=== PATIENT | female | born 1985 | race Caucasian/White ===

== ENCOUNTER 2016-06-28 21:12 | Inpatient (IN) | payer OTHER ==
[~2016-06-28] VITALS: Ht 162.6 cm; Wt 64.0 kg
[~2016-06-28 21:12] MED LIST: LIDOCAINE PF 1% 30ML(POUR BTL) INJ ONE; MINERAL OIL 30 ML UDC ONE
[2016-06-28] MEDS ORDERED: LR 500 ML IV ONE (21:48)
[2016-06-28] MEDS ORDERED: LR 1,000 ML IV ONE (21:48)
[2016-06-28] MEDS ORDERED: OXYTOCIN/NORMAL SALINE 1,000 ML IV SCH (21:48)
[2016-06-28] MEDS ORDERED: LR 1,000 ML IV SCH (21:48)
[2016-06-28] MEDS ORDERED: NALBUPHINE HCL 10 MG/ML AMP IVP PRN (22:00)
[2016-06-28] MEDS ORDERED: TERBUTALINE SULFATE 1 MG/ML VIAL SUBCUT PRN (22:00)
[2016-06-28 22:29] LABS: BASOPHILS # (AUTO) 0.2 K/uL (0.0-0.2); BASOPHILS % (AUTO) 1.9 % (0.0-2.0); EOSINOPHILS # (AUTO) 0.1 K/uL (0.0-0.4); EOSINOPHILS % (AUTO) 0.6 % (0.0-4.0); HEMATOCRIT 41.3 % (36-48); HEMOGLOBIN 13.8 g/dL (12.0-16.0); LYMPHOCYTES # (AUTO) 1.2 K/uL (1.0-5.5); LYMPHOCYTES % (AUTO) 10.9 % (20.5-51.5); MEAN CORPUSCULAR HEMOGLOBIN 31 pg (27-31); MEAN CORPUSCULAR HGB CONC 33 % (32-36); MEAN CORPUSCULAR VOLUME 94 fL (79.0-98.0); MONOCYTES # (AUTO) 0.6 K/uL (0.0-1.0); MONOCYTES % (AUTO) 5.2 % (1.7-9.3); NEUTROPHILS # (AUTO) 9.3 K/uL (1.8-7.7); NEUTROPHILS % (AUTO) 81.4 % (40.0-70.0); PLATELET COUNT (AUTO) 163 K/uL (130-430); RED BLOOD CELL COUNT(AUTO) 4.39 MIL/uL (4.2-6.2); RED CELL DISTRIBUTION WIDTH 13.5 % (9.0-15.0); WHITE BLOOD COUNT (AUTO) 11.4 K/uL (4.8-10.8)
[2016-06-29] MEDS ORDERED: fentaNYL CITRATE/PF 100 MCG/2 ML AMP ONE (02:48)
[2016-06-29] MEDS ORDERED: FENT2mCg/mL-ROPIVA0.2%/NS EPID 150 ML EP ONE (02:48)
[2016-06-29] MEDS ORDERED: LR 500 ML IV ONE (03:54)
[2016-06-29] MEDS ORDERED: fentaNYL CITRATE/PF 100 MCG/2 ML AMP EP ONE (04:00)
[2016-06-29] MEDS ORDERED: ePHEDrine sulfate 50 MG/ML VIAL IVP PRN (04:00)
[2016-06-29] MEDS ORDERED: ROPIVACAINE 40 MG/20 ML AMP EP ONE (04:00)
[2016-06-29] MEDS ORDERED: FENT2mCg/mL-ROPIVA0.2%/NS EPID 150 ML EP SCH (04:00)
[2016-06-29] MEDS ORDERED: ONDANSETRON HCL 4 MG/2 ML VIAL IVP PRN (04:30)
[2016-06-29] MEDS ORDERED: ONDANSETRON HCL 4 MG/2 ML VIAL ONE (04:39)
[2016-06-29 11:35] VITALS: BP_SYST 103
[2016-06-29] MEDS ORDERED: METHYLERGONOVINE MALEATE 0.2 MG/ML AMP ONE (15:22)
[2016-06-29] MEDS ORDERED: OXYTOCIN/NORMAL SALINE 1,000 ML IV SCH (15:56)
[2016-06-29] MEDS ORDERED: OXYTOCIN/NORMAL SALINE 1,000 ML IV ONE (15:56)
[2016-06-29] MEDS ORDERED: LANOLIN 7 GM OINT. TP PRN (16:00)
[2016-06-29] MEDS ORDERED: ANUSOL 1 EA SUPP.RECT (PREPARATION H) RC PRN (16:00)
[2016-06-29] MEDS ORDERED: RHO(D) IMMUNE GLOBULIN/MALTOSE 1500 UNITS/1.3 ML (WINHRO) IM PRN (16:00)
[2016-06-29] MEDS ORDERED: HYDROCORTISONE 0.5%, 28.35 GM TOPICAL CREAM TP PRN (16:00)
[2016-06-29] MEDS ORDERED: METHYLERGONOVINE MALEATE 0.2 MG TABLET PO PRN (16:00)
[2016-06-29] MEDS ORDERED: OXYCODONE/ACETAMINOPHEN 5-325 TABLET PO PRN ×2 (16:00)
[2016-06-29] MEDS ORDERED: GLYCERIN/WITCH HAZEL (TUCKS PADS) TP PRN (16:00)
[2016-06-29] MEDS ORDERED: ACETAMINOPHEN 325 MG TABLET PO PRN (16:00)
[2016-06-29] MEDS ORDERED: MEASLES,MUMPS&RUBELLA VACC/PF 12500 UNIT/0.5 ML VIAL SUBQ PRN (16:00)
[2016-06-29] MEDS ORDERED: DOCUSATE SODIUM 100 MG CAPSULE PO PRN (16:00)
[2016-06-29] MEDS ORDERED: DERMOPLAST SPRAY TP PRN (16:00)
[2016-06-29] MEDS: IBUPROFEN 600 MG TABLET PO SCH (18:01)
[2016-06-29] MEDS ORDERED: TEMAZEPAM 15 MG CAPSULE PO PRN (21:00)
[2016-06-30] MEDS: IBUPROFEN 600 MG TABLET PO SCH ×4 (00:12→17:39)
[2016-06-30 06:54] LABS: HEMATOCRIT 34.7 % (36-48)
[2016-06-30] MEDS: SENNOSIDES/DOCUSATE SODIUM 1 TAB TABLET(SENOKOT-S) PO PRN ×2 (12:36→17:41)
== END 2016-06-30 20:08 | disposition home or self-care (01) | DRG 775 ==
LOC: SPU 21:12
PROVIDERS: ADMIT Obstetrics & Gynecology; ATTEND Obstetrics & Gynecology
PROC: 10E0XZZ Delivery of Products of Conception, External Approach (ICD-10-PCS; principal; 2016-06-28)
PROC: 0KQM0ZZ Repair Perineum Muscle, Open Approach (ICD-10-PCS; 2016-06-28)
PROC: 3E0S3CZ (ICD-10-PCS; 2016-06-28)
PROC: 00HU33Z Insertion of Infusion Device into Spinal Canal, Percutaneous Approach (ICD-10-PCS; 2016-06-28)
DX: O70.1 Second degree perineal laceration during delivery (principal); Z37.0 Single live birth; Z3A.40 40 weeks gestation of pregnancy
CPT/HCPCS: 36415; 81002-TC; 85018-TC; 85025; 86592; 86886; 86900; 86901; J2001; J2210; J2300; J2405; J2590; J2795; J3010

== ENCOUNTER 2018-02-06 08:20 | Emergency (ER) | payer OTHER ==
[~2018-02-06] VITALS: Ht 162.6 cm; Wt 49.9 kg
[2018-02-06 08:23] VITALS: BP_SYST 114
[2018-02-06] MEDS ORDERED: KETOROLAC TROMETHAMINE 30 MG VIAL IVP ONE (08:30)
[2018-02-06 08:48] LABS: BILIRUBIN,URINE NEGATIVE (NEGATIVE); BLOOD, URINE NEGATIVE (NEGATIVE); CLARITY/URINE CLEAR (CLEAR); COLOR,URINE YELLOW (YELLOW); GLUCOSE,URINE NEGATIVE (NEGATIVE); KETONES,URINE NEGATIVE (NEGATIVE); LEUKOCYTE ESTERASE ,URINE 2+ (NEGATIVE); NITRITE, URINE NEGATIVE (NEGATIVE); PROTEIN URINE NEGATIVE (NEGATIVE); UROBILINOGEN,URINE 0.2 (0.2-1.0)
[2018-02-06 08:51] LABS: BASOPHILS # (AUTO) 0.1 K/uL (0.0-0.2); BASOPHILS % (AUTO) 1.5 % (0.0-2.0); EOSINOPHILS % (AUTO) 0.6 % (0.0-4.0); HEMATOCRIT 42.5 % (36-48); HEMOGLOBIN 13.7 g/dL (12.0-16.0); LYMPHOCYTES # (AUTO) 1.4 K/uL (1.0-5.5); LYMPHOCYTES % (AUTO) 19.7 % (20.5-51.5); MEAN CORPUSCULAR HEMOGLOBIN 30 pg (27-31); MEAN CORPUSCULAR HGB CONC 32 % (32-36); MEAN CORPUSCULAR VOLUME 92 fL (79.0-98.0); MONOCYTES # (AUTO) 0.5 K/uL (0.0-1.0); MONOCYTES % (AUTO) 6.6 % (1.7-9.3); NEUTROPHILS # (AUTO) 5.1 K/uL (1.8-7.7); NEUTROPHILS % (AUTO) 71.6 % (40.0-70.0); PLATELET COUNT (AUTO) 235 K/uL (130-430); RED BLOOD CELL COUNT(AUTO) 4.61 MIL/uL (4.2-6.2); RED CELL DISTRIBUTION WIDTH 13.3 % (9.0-15.0); WHITE BLOOD COUNT (AUTO) 7.1 K/uL (4.8-10.8)
[2018-02-06 08:57] LABS: BACTERIA,URINE MODERATE /HPF (None Seen); MUCUS,URINE 1+ /LPF (None Seen); WBC,URINE 20-50 /HPF (0-3)
[2018-02-06 09:20] LABS: CREATININE 0.52 mg/dL (0.55-1.30); POTASSIUM 4.9 mmol/L (3.5-5.1)
[2018-02-06 09:24] LABS: TOTAL BILIRUBIN 0.9 mg/dL (0.0-1.0)
[2018-02-06 10:00] VITALS: BP_SYST 114
== END 2018-02-06 09:45 | disposition home or self-care (01) ==
LOC: SED 08:20
DX: M54.5 Low back pain (principal); N39.0 Urinary tract infection, site not specified; W10.9XXA Fall (on) (from) unspecified stairs and steps, initial encounter; Y93.89 Activity, other specified; Y92.89 Other specified places as the place of occurrence of the external cause; Y99.8 Other external cause status
CPT/HCPCS: 36415; 72100; 72220; 80053; 81000; 81025; 85025; 87086; 96374; 99285; J1885